=== PATIENT | male | born 2000 | race Two or more races ===

== ENCOUNTER 2024-09-29 13:55 | Inpatient (IN) | payer BC ==
[~2024-09-29] VITALS: Ht 172.7 cm; Wt 99.5 kg
[2024-09-29 15:04] VITALS: BP 122/86; PULSE 87; RESP 16; TEMP 97.8; O2SAT 97
[2024-09-29] MEDS: TETANUS-DIPTH-ACEL PERTUSSIS 0.5ML SYR Tdap IM ONE (15:30)
[2024-09-29] MEDS ORDERED: KETOROLAC TROMETH 30 MG/ML 1ML VIAL IV PRN (16:30)
[2024-09-29] MEDS: INSULIN LISPRO (HUMAN) 100 UNITS/ML ML SC SCH ×2 (17:00→22:09)
--- NOTE | 2024-09-29 17:05 | DVH ---
CLINICAL INDICATION: r/o abscess TECHNIQUE: XY R 1ST FINGER XRAY Comparison: None FINDINGS/IMPRESSION: There is no evidence of acute fracture or dislocation. Soft-tissue swelling between the 1st and 2nd digit.
--- NOTE | 2024-09-29 17:11 | DVHHP2 ---
Admitting Diagnosis: Cellulitis affecting R thumb and R palm History of Present Illness R thumb cellulitis Past Medical History PATY- x 5 years Social History Currently works at Patient Family History: Patient reports no known family medical history. Allergies: Coded Allergies: NO KNOWN ALLERGIES (Unverified , 09/29/24) Home Meds Reported Medications Aspirin (Aspirin 81 Low Dose) 81 Mg Chw, 81 MG PO DAILY, TAB.CHEW TAKE 1 TABLET (81 MG) BY MOUTH ONCE DAILY ONE-HALF HOUR PRIOR TO NIASPAN 09/30/24 Metformin Hydrochloride (METFORMIN HCL ER) 500 Mg Tab, 2 TAB PO BIDWM, TAB 09/30/24 Glimepiride (Glimepiride) 1 Mg Tab, 1 MG PO BID, TAB 09/30/24 Dulaglutide (Trulicity) 0.75 Mg/0.5 Ml Inj, 0.75 MG SC QWEEKLY, INJ 09/30/24 Loratadine (Claritin) 10 Mg Tab, 10 MG PO DAILY@0600, TAB 09/30/24 Current Medications Current Medications Medications (Trade) Dose Ordered Sig/Tano Route PRN Reason Start Time Stop Time Status Last Admin Sodium Chloride 1,000 ml @ 25 mls/hr Q24H IV 10/01/24 12:30 10/01/24 15:21 UNV Ceftriaxone Sodium/Dextrose 50 ml @ 50 mls/hr NOW IV 10/01/24 12:30 10/01/24 15:00 UNV Doxycycline Monohydrate (Vibramycin Tablet) 100 mg Q12HR PO 10/01/24 12:30 10/01/24 15:00 UNV Vital Signs Vital Signs Date Time Temp Pulse Resp B/P (MAP) Pulse Ox O2 Delivery O2 Flow Rate FiO2 10/01/24 09:00 97.7 102 17 129/77 (94) 98 97.7 09/30/24 20:00 Room Air* 0 21 Results Labs Test 10/01/24 11:51 10/01/24 06:15 09/30/24 04:43 09/29/24 21:31 Range/Units POC Glucose 115 H 70-106 mg/dl White Blood Count 6.1 4.4-10.8 10^3/uL Red Blood Count 5.69 4.5-5.90 10^6/uL Hemoglobin 16.7 13.5-17.5 g/dL Hematocrit 49.0 41.0-53.0 % Mean Corpuscular Volume 86.2 80.0-100.0 fL Mean Corpuscular Hemoglobin 29.3 28.0-32.0 pg Mean Corpuscular Hemoglobin Concent 34.0 32.0-36.0 g/dL Red Cell Distribution Width 12.9 11.8-14.3 % Platelet Count 234 140-450 10^3/uL Mean Platelet Volume 6.7 L 6.9-10.8 fL Neutrophils (%) (Auto) 62.1 37.0-80.0 % Lymphocytes (%) (Auto) 26.0 10.0-50.0 % Monocytes (%) (Auto) 8.3 0.0-12.0 % Eosinophils (%) (Auto) 2.9 0.0-7.0 % Basophils (%) (Auto) 0.7 0.0-2.0 % Neutrophils # (Auto) 3.8 1.6-8.6 10 ^3/uL Lymphocytes # (Auto) 1.6 0.4-5.4 10 ^3/uL Monocytes # (Auto) 0.5 0-1.3 10 ^3/uL Eosinophils # (Auto) 0.2 0-0.8 10 ^3/uL Basophils # (Auto) 0 0-0.2 10 ^3/uL Nucleated Red Blood Cells 0.1 % Sodium Level 137 136-145 mmol/L Potassium Level 4.0 3.5-5.1 mmol/L Chloride Level 105 98-107 mmol/L Carbon Dioxide Level 24 20-31 mmol/L Anion Gap 8 5-15 Blood Urea Nitrogen 9 9-23 mg/dL Creatinine 0.65 L 0.700-1.30 mg/dL Glomerular Filtration Rate Calc 137 >90 mL/min BUN/Creatinine Ratio 13.8 10.0-20.0 Serum Glucose 139 H 74-106 mg/dL Hemoglobin A1c 5.9 H <5.7 % A1C Calcium Level 10.2 8.7-10.4 mg/dL Total Bilirubin 0.8 0.2-1.0 mg/dL Aspartate Amino Transferase (AST) 21 13-40 U/L Alanine Aminotransferase (ALT) 54 H 7-40 U/L Alkaline Phosphatase 75 46-116 U/L Total Protein 7.4 5.7-8.2 g/dL Albumin 4.7 3.2-4.8 g/dL Erythrocyte Sedimentation Rate 13 0-20 mm/hr Microbiology Date/Time Source Procedure Growth Status 09/29/24 18:10 Blood Blood Culture - Preliminary NO GROWTH AFTER 24 HOURS OF INCUBATION. Resulted Primary Diagnosis Cellulitis affecting R thumb Admitting Diagnosis: Cellulitis affecting R thumb and R hand Cat bite TASNEEM REILLY MD Sep 29, 2024 17:11
[2024-09-29] MEDS: SOD CHL 0.45% 1,000 ML IV SCH (17:17)
[2024-09-29] MEDS: ACCU-CHEK COMFORT CURVE STRIP VI SCH (17:29)
[2024-09-29] MEDS: cefTRIAXone 2GM/50ML D5W 50 ML IV SCH (17:48)
[2024-09-29] MEDS: metFORMIN HYDROCHLORIDE 850 MG TAB PO SCH (18:59)
[2024-09-29 19:50] LABS: Alanine Aminotransferase 58 U/L (7-40); Albumin 5.1 g/dL (3.2-4.8); Alkaline Phosphatase 81 U/L (46-116); Anion Gap 6 (5-15); Aspartate Aminotransferase 26 U/L (13-40); BUN/Creatinine Ratio 13.9 (10.0-20.0); Blood Urea Nitrogen 10 mg/dL (9-23); Calcium 10.7 mg/dL (8.7-10.4); Carbon Dioxide 29 mmol/L (20-31); Chloride 103 mmol/L (98-107); Glucose 130 mg/dL (74-106); Potassium 4.3 mmol/L (3.5-5.1); Sodium 138 mmol/L (136-145)
[2024-09-29 19:51] LABS: Bilirubin, Total 0.8 mg/dL (0.2-1.0); Total Protein 8.1 g/dL (5.7-8.2)
[2024-09-29 20:00] VITALS: PULSE 95; RESP 20; O2SAT 96
[2024-09-29] MEDS: DOXYCYCLINE 100 MG TAB/CAP PO ONE (20:30)
[2024-09-29 21:00] VITALS: BP 135/72; PULSE 95; RESP 20; TEMP 97.9; O2SAT 98
[2024-09-29 21:41] LABS: Basophils # (auto) 0 10 ^3/uL (0-0.2); Basophils % (auto) 0.5 % (0.0-2.0); Eosinophils # (auto) 0.2 10 ^3/uL (0-0.8); Eosinophils % (auto) 2.9 % (0.0-7.0); Hemoglobin 16.4 g/dL (13.5-17.5); Lymphocytes # (auto) 2.3 10 ^3/uL (0.4-5.4); Lymphocytes % (auto) 26.4 % (10.0-50.0); Mean Corpuscular Hemoglobin 30.3 pg (28.0-32.0); Mean Corpuscular Hgb Conc. 35.7 g/dL (32.0-36.0); Monocytes # (auto) 0.6 10 ^3/uL (0-1.3); Monocytes % (auto) 7.3 % (0.0-12.0); Neutrophils # (auto) 5.5 10 ^3/uL (1.6-8.6); Neutrophils % (auto) 62.9 % (37.0-80.0); Nucleated Red Blood Cells % 0.2 %; Platelet Count (auto) 219 10^3/uL (140-450); Red Blood Cells 5.41 10^6/uL (4.5-5.90); Red Cell Distribution Width 13.2 % (11.8-14.3); White Blood Cell 8.7 10^3/uL (4.4-10.8)
[2024-09-29 22:24] LABS: Erythrocyte Sedimentation Rate 13 mm/hr (0-20)
[2024-09-29] MEDS: DOXYCYCLINE 100 MG TAB/CAP PO SCH (23:27)
[2024-09-30] VITALS (7 sets, daily range): BP systolic 119–127; BP diastolic 67–80; PULSE 92–110; RESP 18–20; TEMP 97.4–98.1; O2SAT 97–99
[2024-09-30 06:01] LABS: Basophils # (auto) 0.1 10 ^3/uL (0-0.2); Basophils % (auto) 0.7 % (0.0-2.0); Eosinophils # (auto) 0.2 10 ^3/uL (0-0.8); Eosinophils % (auto) 2.7 % (0.0-7.0); Hematocrit 48.1 % (41.0-53.0); Hemoglobin 17.2 g/dL (13.5-17.5); Lymphocytes # (auto) 1.6 10 ^3/uL (0.4-5.4); Lymphocytes % (auto) 21.6 % (10.0-50.0); Mean Corpuscular Hemoglobin 30.4 pg (28.0-32.0); Mean Corpuscular Hgb Conc. 35.8 g/dL (32.0-36.0); Monocytes # (auto) 0.6 10 ^3/uL (0-1.3); Monocytes % (auto) 7.8 % (0.0-12.0); Neutrophils % (auto) 67.2 % (37.0-80.0); Nucleated Red Blood Cells % 0.4 %; Platelet Count (auto) 222 10^3/uL (140-450); Red Blood Cells 5.67 10^6/uL (4.5-5.90); White Blood Cell 7.4 10^3/uL (4.4-10.8)
[2024-09-30 06:22] LABS: Alanine Aminotransferase 54 U/L (7-40); Albumin 4.7 g/dL (3.2-4.8); Alkaline Phosphatase 75 U/L (46-116); Anion Gap 8 (5-15); Aspartate Aminotransferase 21 U/L (13-40); BUN/Creatinine Ratio 13.8 (10.0-20.0); Bilirubin, Total 0.8 mg/dL (0.2-1.0); Blood Urea Nitrogen 9 mg/dL (9-23); Calcium 10.2 mg/dL (8.7-10.4); Carbon Dioxide 24 mmol/L (20-31); Chloride 105 mmol/L (98-107); Glucose 139 mg/dL (74-106); Sodium 137 mmol/L (136-145); Total Protein 7.4 g/dL (5.7-8.2)
[2024-09-30] MEDS ORDERED: ASPI81CH74 PO (15:44)
[2024-09-30] MEDS ORDERED: LORA-622 PO (15:44)
[2024-09-30] MEDS ORDERED: METF-489 PO (15:44)
[2024-09-30] MEDS ORDERED: DULA1INJ SC (15:44)
[2024-09-30] MEDS ORDERED: GLIM-38 PO (15:44)
--- NOTE | 2024-09-30 16:12 | DVHINCON2 ---
Date of service: Sep 30, 2024 Family History: Patient reports no known family medical history. Allergies: Coded Allergies: NO KNOWN ALLERGIES (Unverified , 09/29/24) Home Meds Reported Medications Aspirin (Aspirin 81 Low Dose) 81 Mg Chw, 81 MG PO DAILY, TAB.CHEW TAKE 1 TABLET (81 MG) BY MOUTH ONCE DAILY ONE-HALF HOUR PRIOR TO NIASPAN 09/30/24 Metformin Hydrochloride (METFORMIN HCL ER) 500 Mg Tab, 2 TAB PO BIDWM, TAB 09/30/24 Glimepiride (Glimepiride) 1 Mg Tab, 1 MG PO BID, TAB 09/30/24 Dulaglutide (Trulicity) 0.75 Mg/0.5 Ml Inj, 0.75 MG SC QWEEKLY, INJ 09/30/24 Loratadine (Claritin) 10 Mg Tab, 10 MG PO DAILY@0600, TAB 09/30/24 Current Medications Current Medications Medications (Trade) Dose Ordered Sig/Tano Route PRN Reason Start Time Stop Time Status Last Admin Ceftriaxone Sodium/Dextrose 50 ml @ 50 mls/hr Q12H IV 09/29/24 17:00 09/30/24 05:00 Diagnostic Test (Pha) (Accu-Chek Comfort Curve T) 1 strip ACHS 09/29/24 17:00 09/30/24 15:42 Insulin Human Lispro (HumaLOG) AC SC 09/29/24 17:00 Insulin Human Lispro (HumaLOG) HS SC 09/29/24 22:00 09/29/24 22:09 Metformin HCl (Glucophage) 850 mg BIDWM PO 09/29/24 18:00 09/30/24 10:01 Ketorolac Tromethamine (Toradol Injection) 30 mg Q6HPRN PRN IV MODERATE PAIN (4-6 PAIN SCALE) 09/29/24 16:30 10/04/24 16:29 Doxycycline Monohydrate (Vibramycin Tablet) 100 mg Q12HR PO 09/29/24 22:00 09/30/24 10:02 Vital Signs Vital Signs Date Time Temp Pulse Resp B/P (MAP) Pulse Ox O2 Delivery O2 Flow Rate FiO2 09/30/24 12:48 98.1 107 18 119/75 (90) 98 98.1 09/30/24 08:00 Room Air* 0 21 Labs/Diagnostic Data Labs Test 09/30/24 11:26 09/30/24 04:43 09/29/24 21:31 Range/Units POC Glucose 120 H 70-106 mg/dl White Blood Count 7.4 4.4-10.8 10^3/uL Red Blood Count 5.67 4.5-5.90 10^6/uL Hemoglobin 17.2 13.5-17.5 g/dL Hematocrit 48.1 41.0-53.0 % Mean Corpuscular Volume 85.0 80.0-100.0 fL Mean Corpuscular Hemoglobin 30.4 28.0-32.0 pg Mean Corpuscular Hemoglobin Concent 35.8 32.0-36.0 g/dL Red Cell Distribution Width 13.0 11.8-14.3 % Platelet Count 222 140-450 10^3/uL Mean Platelet Volume 7.0 6.9-10.8 fL Neutrophils (%) (Auto) 67.2 37.0-80.0 % Lymphocytes (%) (Auto) 21.6 10.0-50.0 % Monocytes (%) (Auto) 7.8 0.0-12.0 % Eosinophils (%) (Auto) 2.7 0.0-7.0 % Basophils (%) (Auto) 0.7 0.0-2.0 % Neutrophils # (Auto) 5.0 1.6-8.6 10 ^3/uL Lymphocytes # (Auto) 1.6 0.4-5.4 10 ^3/uL Monocytes # (Auto) 0.6 0-1.3 10 ^3/uL Eosinophils # (Auto) 0.2 0-0.8 10 ^3/uL Basophils # (Auto) 0.1 0-0.2 10 ^3/uL Nucleated Red Blood Cells 0.4 % Sodium Level 137 136-145 mmol/L Potassium Level 4.0 3.5-5.1 mmol/L Chloride Level 105 98-107 mmol/L Carbon Dioxide Level 24 20-31 mmol/L Anion Gap 8 5-15 Blood Urea Nitrogen 9 9-23 mg/dL Creatinine 0.65 L 0.700-1.30 mg/dL Glomerular Filtration Rate Calc 137 >90 mL/min BUN/Creatinine Ratio 13.8 10.0-20.0 Serum Glucose 139 H 74-106 mg/dL Hemoglobin A1c 5.9 H <5.7 % A1C Calcium Level 10.2 8.7-10.4 mg/dL Total Bilirubin 0.8 0.2-1.0 mg/dL Aspartate Amino Transferase (AST) 21 13-40 U/L Alanine Aminotransferase (ALT) 54 H 7-40 U/L Alkaline Phosphatase 75 46-116 U/L Total Protein 7.4 5.7-8.2 g/dL Albumin 4.7 3.2-4.8 g/dL Erythrocyte Sedimentation Rate 13 0-20 mm/hr Plan/Recommendation ASSESSMENT AND PLAN: ID Problem List: - Cat bite to right thumb - Cellulitis of right thumb and index finger - Possible felon abscess of right thumb - Early-onset diabetes mellitus - Prediabetes - Possible depression/anxiety Assessment This is a 21 y.o. male with a past medical history of early-onset diabetes mellitus, who presents with cellulitis of the right thumb and index finger following a cat bite. The patient reports being bitten by his vaccinated cat last . Swelling and erythema developed along the thumb, including the palmar surface of his hand. He has been on doxycycline, and the swelling has since decreased. He reports no fevers, chills, or lymphadenopathy. He denies involvement of the elbow or shoulder. He had wrist pain which has resolved. On physical exam, there is a puncture wound on both the palmar and dorsal aspects of the right thumb, with mild erythema extending midway down the thumb joint, and tenderness. No purulence is noted, but the patient states purulence was present previously. No blistering is observed. Laboratory studies show a white blood cell count of 8.7 x10^9/L and an HbA1c of 5.9%. X-ray of the right thumb shows no evidence of fracture, with soft tissue swelling between the 1st and 2nd digits. Plan: - Switch antibiotics to Unasyn (ampicillin-sulbactam), effective for cat bite cellulitis. - Recommend CT imaging to rule out felon abscess. - If no abscess is present, plan to discharge patient on a 30-day course of oral Augmentin 875 mg/125 mg BID. - Monitor for signs of infection or abscess formation. - Encourage glucose monitoring due to prediabetes. - Screen for depression and anxiety. Isolation Precautions: standard Assessment and plan was discussed with the patient as written above Plan is subject to change pending incorporation of new incoming infor mation/diagnostics. Updates may be added as addendum at the bottom (OR TOP) of this note Thank you for the interesting consult. We will continue to follow. Please contact Infectious Disease for any questions or concerns. Abril Hardy M.D. [facility] Ph: ? History: The patient's chart and medications were reviewed in detail, and the patient was seen and examined. History obtained from: patient The patient is a 21 y.o. male with a past medical history of early-onset diabetes mellitus, who presents with cellulitis of the right thumb and index f yobany following a cat bite. He reports being bitten by his vaccinated cat last . Swelling and erythema developed along the thumb, including the palmar surface of his hand. He started doxycycline, and the swelling has since decreased. He denies fevers, chills, or lymphadenopathy. No involvement of the elbow or shoulder is reported. Previous wrist pain has resolved. Review of Systems: A complete 10-system review of systems was completed and negative except as noted in the HPI or here. ROS: - CONSTITUTIONAL: Denies weight loss, fever, and chills. - HEENT: Denies changes in vision and hearing. - RESPIRATORY: Denies SOB and cough. - CV: Denies palpitations and chest pain. - GI: Denies abdominal pain, nausea, vomiting, and diarrhea. - : Denies dysuria and urinary frequency. - MSK: Denies myalgia and joint pain. Reports prior wrist pain, now resolved. - SKIN: Reports swelling and redness of right thumb. - NEUROLOGICAL: Denies headache and syncope. - PSYCHIATRIC: Possible depression and anxiety. Past Medical History: Diagnosis - Early-onset diabetes mellitus - Possible depression and anxiety Past Surgical History: History reviewed. No pertinent surgical history. Home Medications: Not on file. Allergies: No known allergies. Family History: Not on file. Social History: Tobacco Use - Smoking status: Never - Smokeless tobacco: Never Vaping Use - Vaping status: Never used Substance and Sexual Activity - Alcohol use: Never - Drug use: Never - Sexual activity: Not specified Other Topics Concern - Not on file Social Determinants of Health - Not on file Objective: Vital Signs on Arrival: Temp: 36.4 C (97.5 F)?BP: 127/80 mmHg?Pulse: 90?Resp: 18?SpO2: 99% on room air Most Recent Vital Signs: Temp: 36.4 C (97.5 F)?BP: 127/80 mmHg?Pulse: 90?Resp: 18?SpO2: 99% on room air Admission Weight: Not on file?BMI: Not on file Physical Exam: General:?NAD Neck:?Supple. No masses. HEENT:?PERRL. Normal lids and conjunctiva. Moist mucous membranes. Oropharynx without lesions, exudates, or excessive erythema. Normal appearance of the external aspects of the nose and ears. Heart:?Regular rhythm, normal rate. No murmur. No lower extremity edema. Lungs:?Normal respiratory effort. Clear to auscultation bilaterally. No wheezes. No crackles. Abdomen:?Soft. Non-tender. Non-distended. No masses or abdominal hernia. Msk:?No digital cyanosis. Normal strength and tone in all 4 limbs. Puncture wounds on palmar and dorsal aspects of right thumb. Mild erythema extending midway down the right thumb joint. Tenderness to palpation of right thumb. Skin:?Warm and dry. Mild erythema and tenderness of the right thumb extending midway down the thumb joint. Puncture wounds noted on palmar and dorsal aspects of the right thumb. No purulence. No blistering. Neuro:?Alert. No facial droop or slurred speech. Extra-ocular movements intact. Sensation intact to soft touch in all 4 limbs. Psych:?Appropriate mood. Full affect. Oriented to person, place, time, and situation. Lines: No active lines. Diagnostic Studies: Available diagnostic studies were reviewed personally. Significant relevant results and findings are outlined below or addressed in the Assessment and Plan above. Pertinent Imaging: X-ray Right Thumb - Impression: - No fracture or dislocation. Soft tissue swelling between the 1st and 2nd digits. Laboratory Studies: - WBC: 8.7 x10^9/L - HbA1c: 5.9% Plan discussed with: Patient ABRIL HARDY MD Sep 30, 2024 16:12
--- NOTE | 2024-09-30 19:54 | DVHPN2 ---
Progress Note - Dictate Date Seen: Sep 30, 2024 vital signs Vital Sign Date Time Temp Pulse Resp B/P (MAP) Pulse Ox O2 Delivery O2 Flow Rate FiO2 09/30/24 16:52 97.4 101 18 127/80 (96) 99 97.4 09/30/24 08:00 Room Air* 0 21 Total Intake and Output 09/29/24 09/29/24 09/30/24 15:00 23:00 07:00 Intake Total 450 ml 1450 ml Output Total 300 ml Balance 150 ml 1450 ml medications Current Medications Medications Dose Ordered Sig/Tano Route Start Time Stop Time Status Last Admin Dose Admin Sodium Chloride 1,000 ml @ 75 mls/hr [id number] IV 09/29/24 15:30 09/30/24 17:58 75 MLS/HR Ceftriaxone Sodium/Dextrose 50 ml @ 50 mls/hr Q12H IV 09/29/24 17:00 09/30/24 17:57 50 MLS/HR Diagnostic Test (Pha) 1 strip ACHS 09/29/24 17:00 09/30/24 17:49 1 STRIP Insulin Human Lispro AC SC 09/29/24 17:00 Insulin Human Lispro HS SC 09/29/24 22:00 09/29/24 22:09 2 UNITS Metformin HCl 850 mg BIDWM PO 09/29/24 18:00 09/30/24 17:57 850 MG Ketorolac Tromethamine 30 mg Q6HPRN PRN IV 09/29/24 16:30 10/04/24 16:29 Doxycycline Monohydrate 100 mg Q12HR PO 09/29/24 22:00 09/30/24 10:02 100 MG laboratory and microbiology Laboratory Tests 09/30/24 04:43 Test 09/30/24 04:43 Range/Units Serum Glucose 139 H 74-106 mg/dL TASNEEM REILLY MD Sep 30, 2024 19:54
[2024-10-01 01:00] VITALS: BP 117/69; PULSE 95; RESP 20; TEMP 98.6; O2SAT 98
[2024-10-01 05:00] VITALS: BP 131/74; PULSE 98; RESP 20; TEMP 97.6; O2SAT 98
[2024-10-01 07:11] LABS: Basophils # (auto) 0 10 ^3/uL (0-0.2); Basophils % (auto) 0.7 % (0.0-2.0); Eosinophils # (auto) 0.2 10 ^3/uL (0-0.8); Eosinophils % (auto) 2.9 % (0.0-7.0); Hemoglobin 16.7 g/dL (13.5-17.5); Lymphocytes # (auto) 1.6 10 ^3/uL (0.4-5.4); Mean Corpuscular Hemoglobin 29.3 pg (28.0-32.0); Mean Corpuscular Volume 86.2 fL (80.0-100.0); Monocytes # (auto) 0.5 10 ^3/uL (0-1.3); Monocytes % (auto) 8.3 % (0.0-12.0); Neutrophils # (auto) 3.8 10 ^3/uL (1.6-8.6); Neutrophils % (auto) 62.1 % (37.0-80.0); Nucleated Red Blood Cells % 0.1 %; Platelet Count (auto) 234 10^3/uL (140-450); Red Blood Cells 5.69 10^6/uL (4.5-5.90); Red Cell Distribution Width 12.9 % (11.8-14.3); White Blood Cell 6.1 10^3/uL (4.4-10.8)
[2024-10-01 09:00] VITALS: BP 129/77; PULSE 102; RESP 17; TEMP 97.7; O2SAT 98
[2024-10-01] MEDS ORDERED: DOXYCYCLINE 100 MG TAB/CAP PO SCH (12:30)
[2024-10-01] MEDS ORDERED: SOD CHL 0.45% 1,000 ML IV SCH ×2 (12:30→13:00)
[2024-10-01] MEDS ORDERED: cefTRIAXone 2GM/50ML D5W 50 ML IV SCH (12:30)
--- NOTE | 2024-10-01 12:49 | DVHPN2 ---
Consult Progress Note Date Seen: Oct 01, 2024 Subjective Patient reports: Feels better (swelling and redness improved) Objective vital signs Vital Sign Date Time Temp Pulse Resp B/P (MAP) Pulse Ox O2 Delivery O2 Flow Rate FiO2 10/01/24 09:00 97.7 102 17 129/77 (94) 98 97.7 09/30/24 20:00 Room Air* 0 21 Total Intake and Output 09/30/24 09/30/24 10/01/24 15:00 23:00 07:00 Intake Total 1900 ml 1300 ml Output Total 600 ml 0 ml Balance 1300 ml 1300 ml medications Current Medications Medications Dose Ordered Sig/Tano Route Start Time Stop Time Status Last Admin Dose Admin Diagnostic Test (Pha) 1 strip ACHS 09/29/24 17:00 10/01/24 06:35 1 STRIP Insulin Human Lispro AC SC 09/29/24 17:00 Insulin Human Lispro HS SC 09/29/24 22:00 09/30/24 21:14 2 UNITS Metformin HCl 850 mg BIDWM PO 09/29/24 18:00 10/01/24 10:02 850 MG Ketorolac Tromethamine 30 mg Q6HPRN PRN IV 09/29/24 16:30 10/04/24 16:29 Sodium Chloride 1,000 ml @ 25 mls/hr Q24H IV 10/01/24 12:30 10/01/24 15:21 Ceftriaxone Sodium/Dextrose 50 ml @ 50 mls/hr NOW IV 10/01/24 12:30 10/01/24 15:00 UNV Doxycycline Monohydrate 100 mg Q12HR PO 10/01/24 12:30 10/01/24 15:00 UNV Ampicillin Sodium/ Sulbactam Sodium 3 gm/Sodium Chloride 100 ml @ 100 mls/hr Q6H IV 10/01/24 12:45 UNV Physical Exam: General:?NAD Neck:?Supple. No masses. HEENT:?PERRL. Normal lids and conjunctiva. Moist mucous membranes. Oropharynx without lesions, exudates, or excessive erythema. Normal appearance of the external aspects of the nose and ears. Heart:?Regular rhythm, normal rate. No murmur. No lower extremity edema. Lungs:?Normal respiratory effort. Clear to auscultation bilaterally. No wheezes. No crackles. Abdomen:?Soft. Non-tender. Non-distended. No masses or abdominal hernia. Msk:?No digital cyanosis. Normal strength and tone in all 4 limbs. Puncture wounds on palmar and dorsal aspects of right thumb. Mild erythema extending midway down the right thumb joint. Tenderness to palpation of right thumb. Skin:?Warm and dry. Mild erythema and tenderness of the right thumb extending midway down the thumb joint. Puncture wounds noted on palmar and dorsal aspects of the right thumb. No purulence. No blistering. Neuro:?Alert. No facial droop or slurred speech. Extra-ocular movements intact. Sensation intact to soft touch in all 4 limbs. Psych:?Appropriate mood. Full affect. Oriented to person, place, time, and situation. laboratory and microbiology Laboratory Tests 10/01/24 06:15 09/30/24 04:43 Test 09/30/24 04:43 Range/Units Serum Glucose 139 H 74-106 mg/dL Problem List/Assessment/Plan Problem List/Assessment/Plan ASSESSMENT AND PLAN: ID Problem List: - Cat bite to right thumb - Cellulitis of right thumb and index finger - Possible felon abscess of right thumb - Early-onset diabetes mellitus - Prediabetes - Possible depression/anxiety Assessment This is a 21 y.o. male with a past medical history of early-onset diabetes mellitus, who presents with cellulitis of the right thumb and index finger following a cat bite. The patient reports being bitten by his vaccinated cat last . Swelling and erythema developed along the thumb, including the palmar surface of his hand. He has been on doxycycline, and the swelling has since decreased. He reports no fevers, chills, or lymphadenopathy. He denies involvement of the elbow or shoulder. He had wrist pain which has resolved. On physical exam, there is a puncture wound on both the palmar and dorsal aspects of the right thumb, with mild erythema extending midway down the thumb joint, and tenderness. No purulence is noted, but the patient states purulence was present previously. No blistering is observed. Laboratory studies show a white blood cell count of 8.7 x10^9/L and an HbA1c of 5.9%. X-ray of the right thumb shows no evidence of fracture, with soft tissue swelling between the 1st and 2nd digits. Plan: - Switch antibiotics to Unasyn (ampicillin-sulbactam), effective for cat bite cellulitis. - Recommend CT imaging to rule out felon abscess. - If no abscess is present, plan to discharge patient on a 30-day course of oral Augmentin 875 mg/125 mg BID. - Monitor for signs of infection or abscess formation. - Encourage glucose monitoring due to prediabetes. - Screen for depression and anxiety. Isolation Precautions: standard Assessment and plan was discussed with the patient as written above Plan is subject to change pending incorporation of new incoming information/diagnostics. Updates may be added as addendum at the bottom (OR TOP) of this note Thank you for the interesting consult. We will continue to follow. Please contact Infectious Disease for any questions or concerns. Abril Hardy M.D. [facility] Ph: ? Plan discussed with: Patient ABRIL HARDY MD Oct 01, 2024 12:49
--- NOTE | 2024-10-01 12:49 | DVHDS2 ---
Discharge Summary Date of Admission Sep 29, 2024 at 13:55 Date of Discharge: Oct 01, 2024 Labs/Diagnostic Data: Laboratory Results Test 10/01/24 11:51 10/01/24 06:15 09/30/24 04:43 09/29/24 21:31 POC Glucose 115 mg/dl (70-106) White Blood Count 6.1 10^3/uL (4.4-10.8) Red Blood Count 5.69 10^6/uL (4.5-5.90) Hemoglobin 16.7 g/dL (13.5-17.5) Hematocrit 49.0 % (41.0-53.0) Mean Corpuscular Volume 86.2 fL (80.0-100.0) Mean Corpuscular Hemoglobin 29.3 pg (28.0-32.0) Mean Corpuscular Hemoglobin Concent 34.0 g/dL (32.0-36.0) Red Cell Distribution Width 12.9 % (11.8-14.3) Platelet Count 234 10^3/uL (140-450) Mean Platelet Volume 6.7 fL (6.9-10.8) Neutrophils (%) (Auto) 62.1 % (37.0-80.0) Lymphocytes (%) (Auto) 26.0 % (10.0-50.0) Monocytes (%) (Auto) 8.3 % (0.0-12.0) Eosinophils (%) (Auto) 2.9 % (0.0-7.0) Basophils (%) (Auto) 0.7 % (0.0-2.0) Neutrophils # (Auto) 3.8 10 ^3/uL (1.6-8.6) Lymphocytes # (Auto) 1.6 10 ^3/uL (0.4-5.4) Monocytes # (Auto) 0.5 10 ^3/uL (0-1.3) Eosinophils # (Auto) 0.2 10 ^3/uL (0-0.8) Basophils # (Auto) 0 10 ^3/uL (0-0.2) Nucleated Red Blood Cells 0.1 % Sodium Level 137 mmol/L (136-145) Potassium Level 4.0 mmol/L (3.5-5.1) Chloride Level 105 mmol/L (98-107) Carbon Dioxide Level 24 mmol/L (20-31) Anion Gap 8 (5-15) Blood Urea Nitrogen 9 mg/dL (9-23) Creatinine 0.65 mg/dL (0.700-1.30) Glomerular Filtration Rate Calc 137 mL/min (>90) BUN/Creatinine Ratio 13.8 (10.0-20.0) Serum Glucose 139 mg/dL (74-106) Hemoglobin A1c 5.9 % A1C (<5.7) Calcium Level 10.2 mg/dL (8.7-10.4) Total Bilirubin 0.8 mg/dL (0.2-1.0) Aspartate Amino Transferase (AST) 21 U/L (13-40) Alanine Aminotransferase (ALT) 54 U/L (7-40) Alkaline Phosphatase 75 U/L (46-116) Total Protein 7.4 g/dL (5.7-8.2) Albumin 4.7 g/dL (3.2-4.8) Erythrocyte Sedimentation Rate 13 mm/hr (0-20) Other Laboratory Tests 10/01/24 06:15 09/30/24 04:43 Discharge Statement: "Patient was advised to return to the ER or call 911 if any headaches, dizziness, shortness of breath, chest pain, abdominal pain, bleeding, fevers, or worsening of medical condition. Patient was counseled about treatment plan, medications, possible side effects, patientverbalized understanding. All questions were answered to the best of my ability. This discharge took greater then 30 minutes in planning, reviewing documentation, counseling the patient, and discussing with other team members." ASSESSMENT ASSESSMENT Assessment TASNEEM REILLY MD Oct 01, 2024 12:49
[2024-10-01 13:00] VITALS: BP 115/70; PULSE 85; RESP 17; TEMP 97.9; O2SAT 100
--- NOTE | 2024-10-01 13:02 | DVHPN2 ---
Progress Note - Dictate Date Seen: Oct 01, [address] Enzo Hardy Rec CT Thumb Revised IV rocephin to Unasyn vital signs Vital Sign Date Time Temp Pulse Resp B/P (MAP) Pulse Ox O2 Delivery O2 Flow Rate FiO2 10/01/24 09:00 97.7 102 17 129/77 (94) 98 97.7 09/30/24 20:00 Room Air* 0 21 Total Intake and Output 09/30/24 09/30/24 10/01/24 15:00 23:00 07:00 Intake Total 1900 ml 1300 ml Output Total 600 ml 0 ml Balance 1300 ml 1300 ml medications Current Medications Medications Dose Ordered Sig/Tano Route Start Time Stop Time Status Last Admin Dose Admin Diagnostic Test (Pha) 1 strip ACHS 09/29/24 17:00 10/01/24 06:35 1 STRIP Insulin Human Lispro AC SC 09/29/24 17:00 Insulin Human Lispro HS SC 09/29/24 22:00 09/30/24 21:14 2 UNITS Metformin HCl 850 mg BIDWM PO 09/29/24 18:00 10/01/24 10:02 850 MG Ketorolac Tromethamine 30 mg Q6HPRN PRN IV 09/29/24 16:30 10/04/24 16:29 Ceftriaxone Sodium/Dextrose 50 ml @ 50 mls/hr NOW IV 10/01/24 12:30 10/01/24 15:00 UNV Doxycycline Monohydrate 100 mg Q12HR PO 10/01/24 12:30 10/01/24 15:00 UNV Ampicillin Sodium/ Sulbactam Sodium 3 gm/Sodium Chloride 100 ml @ 100 mls/hr Q6H IV 10/01/24 12:45 UNV Sodium Chloride 1,000 ml @ 60 mls/hr [id number] IV 10/01/24 13:00 10/01/24 15:21 UNV laboratory and microbiology Laboratory Tests 10/01/24 06:15 09/30/24 04:43 Test 09/30/24 04:43 Range/Units Serum Glucose 139 H 74-106 mg/dL Problem List Primary Diagnosis Cellulitis affecting R thumb and R hand Cat bite infection of R thumb+ hand Well controlled NIDDM TASNEEM HARDY MD Oct 01, 2024 13:02
--- NOTE | 2024-10-01 13:56 | DVH ---
EXAM: CT CT R HAND WO CONTRAST INDICATION: evaluate for felon abscesS R thumb EXAM DATE: 10/01/2024 01:11 PM COMPARISON: None TECHNIQUE: Multiple axial CT images of the right hand were obtained using bone algorithm. Axial and c oronal reformatting was done. Bone and soft tissue windows were reviewed. Radiation Dose Information: CT Dose: CTDI volume is 7.75 mGy. Dose-length product is 196.17 mGy*cm Findings: Limited evaluation given noncontrast technique. There is no evidence of an acute fracture, dislocation, osseous erosions, blastic, or lytic lesions. No radiopaque foreign bodies. Mild soft tissue edema of the first digit. No definite focal fluid collections. Impression: 1. Limited evaluation given noncontrast technique. 2. No acute osseous abnormalities. 3. Mild soft tissue edema of the first digit. No definite focal fluid collections.
[2024-10-01] MEDS: AMPICILLIN & SULBACTAM SODIUM 3 GM in SODIUM CHL 0.9% 100 ML IV SCH ×2 (15:53→21:49)
[2024-10-01] MEDS: SODIUM CHLORIDE 0.9% 1,000 ML IV SCH (15:53)
[2024-10-01 17:00] VITALS: BP 122/74; PULSE 91; RESP 17; TEMP 98.1; O2SAT 97
[2024-10-01 21:00] VITALS: BP 123/71; PULSE 103; RESP 19; TEMP 98.2; O2SAT 98
[2024-10-02] VITALS (8 sets, daily range): BP systolic 108–132; BP diastolic 55–72; PULSE 84–105; RESP 18–20; TEMP 97.6–98.3; O2SAT 98–99
--- NOTE | 2024-10-02 09:36 | DVHPN2 ---
Progress Note - Dictate Subjective Seen by Dr Enzo Hardy Rec CT Thumb Revised IV rocephin to Unasyn vital signs Vital Sign Date Time Temp Pulse Resp B/P (MAP) Pulse Ox O2 Delivery O2 Flow Rate FiO2 10/02/24 08:26 97.9 105 18 118/72 (87) 98 97.9 10/01/24 08:00 Room Air* 0 21 Total Intake and Output 10/01/24 10/01/24 10/02/24 15:00 23:00 07:00 Intake Total 1475 ml 1134 ml Output Total 0 ml Balance 1475 ml 1134 ml medications Current Medications Medications Dose Ordered Sig/Tano Route Start Time Stop Time Status Last Admin Dose Admin Diagnostic Test (Pha) 1 strip ACHS 09/29/24 17:00 10/02/24 05:42 1 STRIP Insulin Human Lispro AC SC 09/29/24 17:00 Insulin Human Lispro HS SC 09/29/24 22:00 09/30/24 21:14 2 UNITS Metformin HCl 850 mg BIDWM PO 09/29/24 18:00 10/02/24 09:31 850 MG Ketorolac Tromethamine 30 mg Q6HPRN PRN IV 09/29/24 16:30 10/04/24 16:29 Ceftriaxone Sodium/Dextrose 50 ml @ 50 mls/hr NOW IV 10/01/24 12:30 10/01/24 15:00 UNV Doxycycline Monohydrate 100 mg Q12HR PO 10/01/24 12:30 10/01/24 15:00 UNV Sodium Chloride 1,000 ml @ 60 mls/hr [id number] IV 10/01/24 14:15 10/02/24 06:45 60 MLS/HR Ampicillin Sodium/ Sulbactam Sodium 3 gm/Sodium Chloride 100 ml @ 100 mls/hr Q6H IV 10/01/24 22:00 10/02/24 04:03 100 MLS/HR laboratory and microbiology Laboratory Tests 10/01/24 06:15 09/30/24 04:43 Test 09/30/24 04:43 Range/Units Serum Glucose 139 H 74-106 mg/dL PATIENT: LUCY CUEVAS ACCT: [id number] UNIT: [id number] : 2000 LOC: [facility] ROOM / BED: [address] [place] [address] AGE / SEX: 23 / M ADM STATUS: ADM IN SERVICE 1243 ORDERING PHYSICIAN: ABRIL HARDY MD PROCEDURE(s): RHNCT - CT R HAND WO CONTRAST REASON: evaluate for felon abscesS R thumb ORDER NUMBER(s): [id number], ACCESSION NUMBER(s): [id number] EXAM: CT CT R HAND WO CONTRAST INDICATION: evaluate for felon abscesS R thumb EXAM DATE: 10/01/2024 01:11 PM COMPARISON: None Findings: Limited evaluation given noncontrast technique. There is no evidence of an acute fracture, dislocation, osseous erosions, blastic, or lytic lesions. No radiopaque foreign bodies. Mild soft tissue edema of the first digit. No definite focal fluid collections. Impression: 1. Limited evaluation given noncontrast technique. 2. No acute osseous abnormalities. 3. Mild soft tissue edema of the first digit. No definite focal fluid collections. Problem List Primary Diagnosis Cellulitis affecting R thumb and R hand Cat bite infection of R thumb+ hand Well controlled NIDDM TASNEEM HARDY MD Oct 02, 2024 09:36
--- NOTE | 2024-10-02 19:20 | DVHPN2 ---
Consult Progress Note Date Seen: Oct 02, 2024 Subjective Patient reports: Feels better (erythema resolved.) Objective vital signs Vital Sign Date Time Temp Pulse Resp B/P (MAP) Pulse Ox O2 Delivery O2 Flow Rate FiO2 10/02/24 16:33 98.3 84 20 124/65 (84) 98 98.3 10/02/24 08:00 Room Air* 0 21 Total Intake and Output 10/01/24 10/01/24 10/02/24 15:00 23:00 07:00 Intake Total 1475 ml 1134 ml Output Total 0 ml Balance 1475 ml 1134 ml medications Current Medications Medications Dose Ordered Sig/Tano Route Start Time Stop Time Status Last Admin Dose Admin Diagnostic Test (Pha) 1 strip ACHS 09/29/24 17:00 10/02/24 09:36 1 STRIP Insulin Human Lispro AC SC 09/29/24 17:00 Insulin Human Lispro HS SC 09/29/24 22:00 09/30/24 21:14 2 UNITS Metformin HCl 850 mg BIDWM PO 09/29/24 18:00 10/02/24 17:47 850 MG Ketorolac Tromethamine 30 mg Q6HPRN PRN IV 09/29/24 16:30 10/04/24 16:29 Ceftriaxone Sodium/Dextrose 50 ml @ 50 mls/hr NOW IV 10/01/24 12:30 10/01/24 15:00 UNV Doxycycline Monohydrate 100 mg Q12HR PO 10/01/24 12:30 10/01/24 15:00 UNV Sodium Chloride 1,000 ml @ 60 mls/hr [id number] IV 10/01/24 14:15 10/02/24 06:45 60 MLS/HR Ampicillin Sodium/ Sulbactam Sodium 3 gm/Sodium Chloride 100 ml @ 100 mls/hr Q6H IV 10/01/24 22:00 10/02/24 17:46 100 MLS/HR PHYSICAL EXAM: - GENERAL: Alert and oriented x 3. No acute distress. Well-nourished. ? - EYES: EOMI. Anicteric. ?- HENT: Moist mucous membranes. No scleral icterus. No cervical lymphadenopathy. ?- LUNGS: Clear to auscultation bilaterally. No accessory muscle use.? - CARDIOVASCULAR: Regular rate and rhythm. No murmur. No JVD.? - ABDOMEN: Soft, non-tender and non-distended. No palpable masses.? - EXTREMITIES: No edema. Non-tender.?SKIN: No rashes or lesions. Warm. ? - NEUROLOGIC: No focal neurological deficits. CN II-XII grossly intact, but not individually tested.? - PSYCHIATRIC: Cooperative. Appropriate mood and affect. laboratory and microbiology Laboratory Tests 10/01/24 06:15 09/30/24 04:43 Test 09/30/24 04:43 Range/Units Serum Glucose 139 H 74-106 mg/dL Problem List/Assessment/Plan Problem List/Assessment/Plan ASSESSMENT AND PLAN: ID Problem List: - Cat bite to right thumb - Cellulitis of right thumb and index finger - Possible felon abscess of right thumb - Early-onset diabetes mellitus - Prediabetes - Possible depression/anxiety Assessment This is a 21 y.o. male with a past medical history of early-onset diabetes mellitus, who presents with cellulitis of the right thumb and index finger following a cat bite. The patient reports being bitten by his vaccinated cat last . Swelling and erythema developed along the thumb, including the palmar surface of his hand. He has been on doxycycline, and the swelling has since decreased. He reports no fevers, chills, or lymphadenopathy. He denies involvement of the elbow or shoulder. He had wrist pain which has resolved. On physical exam, there is a puncture wound on both the palmar and dorsal aspects of the right thumb, with mild erythema extending midway down the thumb joint, and tenderness. No purulence is noted, but the patient states purulence was present previously. No blistering is observed. Laboratory studies show a white blood cell count of 8.7 x10^9/L and an HbA1c of 5.9%. X-ray of the right thumb shows no evidence of fracture, with soft tissue swelling between the 1st and 2nd digits. CT hand Impression: 1. Limited evaluation given noncontrast technique. 2. No acute osseous abnormalities. 3. Mild soft tissue edema of the first digit. No definite focal fluid collections. Plan: - continue Unasyn (ampicillin-sulbactam), effective for cat bite cellulitis. - no abscess is present, plan to discharge patient on a 30-day course of oral Augmentin 875 mg/125 mg BID. - Monitor for signs of infection or abscess formation. - Encourage glucose monitoring due to prediabetes. - Screen for depression and anxiety. Isolation Precautions: standard Assessment and plan was discussed with the patient as written above Plan is subject to change pending incorporation of new incoming information/diagnostics. Updates may be added as addendum at the bottom (OR TOP) of this note Thank you for the interesting consult. We will continue to follow. Please contact Infectious Disease for any questions or concerns. Abril Hardy M.D. [facility] Ph: ? Plan discussed with: Patient ABRIL HARDY MD Oct 02, 2024 19:20
[2024-10-03 01:00] VITALS: BP 120/59; PULSE 94; RESP 20; TEMP 97.9; O2SAT 99
[2024-10-03 05:01] VITALS: BP 119/62; PULSE 86; RESP 20; TEMP 98.3; O2SAT 98
[2024-10-03 06:18] LABS: Basophils # (auto) 0 10 ^3/uL (0-0.2); Basophils % (auto) 0.8 % (0.0-2.0); Eosinophils # (auto) 0.1 10 ^3/uL (0-0.8); Eosinophils % (auto) 2.4 % (0.0-7.0); Hematocrit 46.7 % (41.0-53.0); Hemoglobin 16.2 g/dL (13.5-17.5); Lymphocytes # (auto) 2.1 10 ^3/uL (0.4-5.4); Lymphocytes % (auto) 33.1 % (10.0-50.0); Mean Corpuscular Hemoglobin 29.7 pg (28.0-32.0); Mean Corpuscular Hgb Conc. 34.6 g/dL (32.0-36.0); Mean Corpuscular Volume 85.8 fL (80.0-100.0); Monocytes # (auto) 0.5 10 ^3/uL (0-1.3); Monocytes % (auto) 7.3 % (0.0-12.0); Neutrophils # (auto) 3.5 10 ^3/uL (1.6-8.6); Neutrophils % (auto) 56.4 % (37.0-80.0); Nucleated Red Blood Cells % 0.2 %; Platelet Count (auto) 233 10^3/uL (140-450); Red Blood Cells 5.45 10^6/uL (4.5-5.90); Red Cell Distribution Width 13.1 % (11.8-14.3); White Blood Cell 6.3 10^3/uL (4.4-10.8)
[2024-10-03 06:44] LABS: Alanine Aminotransferase 54 U/L (7-40); Albumin 4.4 g/dL (3.2-4.8); Alkaline Phosphatase 70 U/L (46-116); Anion Gap 5 (5-15); Aspartate Aminotransferase 21 U/L (13-40); BUN/Creatinine Ratio 19.8 (10.0-20.0); Bilirubin, Total 0.6 mg/dL (0.2-1.0); Blood Urea Nitrogen 16 mg/dL (9-23); Calcium 10.2 mg/dL (8.7-10.4); Carbon Dioxide 29 mmol/L (20-31); Chloride 106 mmol/L (98-107); Glucose 113 mg/dL (74-106); Potassium 4.6 mmol/L (3.5-5.1); Sodium 140 mmol/L (136-145); Total Protein 6.9 g/dL (5.7-8.2)
[2024-10-03 08:00] VITALS: PULSE 79; RESP 20
[2024-10-03 09:00] VITALS: BP 119/67; PULSE 98; RESP 17; TEMP 97.8; O2SAT 98
[2024-10-03] MEDS ORDERED: METF-371 PO (09:47)
[2024-10-03] MEDS ORDERED: AUG875T PO (09:47)
--- NOTE | 2024-10-03 09:57 | DVHPN2 ---
Progress Note - Dictate Date Seen: Oct 03, [address] Enzo Hardy Rec CT Thumb Revised IV rocephin to Unasyn vital signs Vital Sign Date Time Temp Pulse Resp B/P (MAP) Pulse Ox O2 Delivery O2 Flow Rate FiO2 10/03/24 05:01 98.3 86 20 119/62 (81) 98 98.3 10/02/24 20:00 Room Air* 0 21 Total Intake and Output 10/02/24 10/02/24 10/03/24 15:00 23:00 07:00 Intake Total 900 ml 920 ml Balance 900 ml 920 ml medications Current Medications Medications Dose Ordered Sig/Tano Route Start Time Stop Time Status Last Admin Dose Admin Diagnostic Test (Pha) 1 strip ACHS 09/29/24 17:00 10/03/24 05:24 1 STRIP Insulin Human Lispro AC SC 09/29/24 17:00 Insulin Human Lispro HS SC 09/29/24 22:00 10/02/24 21:05 2 UNITS Metformin HCl 850 mg BIDWM PO 09/29/24 18:00 10/03/24 09:15 850 MG Ketorolac Tromethamine 30 mg Q6HPRN PRN IV 09/29/24 16:30 10/04/24 16:29 Ceftriaxone Sodium/Dextrose 50 ml @ 50 mls/hr NOW IV 10/01/24 12:30 10/01/24 15:00 UNV Doxycycline Monohydrate 100 mg Q12HR PO 10/01/24 12:30 10/01/24 15:00 UNV Sodium Chloride 1,000 ml @ 60 mls/hr [id number] IV 10/01/24 14:15 10/02/24 21:09 60 MLS/HR Ampicillin Sodium/ Sulbactam Sodium 3 gm/Sodium Chloride 100 ml @ 100 mls/hr Q6H IV 10/01/24 22:00 10/03/24 09:16 100 MLS/HR laboratory and microbiology Laboratory Tests 10/03/24 05:25 Test 10/03/24 05:25 Range/Units Serum Glucose 113 H 74-106 mg/dL Problem List Primary Diagnosis Cellulitis affecting R thumb and R hand Cat bite infection of R thumb+ hand Well controlled NIDDM TASNEEM HARDY MD Oct 03, 2024 09:57
[2024-10-03 13:00] VITALS: BP 114/64; PULSE 68; RESP 17; TEMP 98.3; O2SAT 99
[2024-10-03 13:11] VITALS: BP 126/75; PULSE 72; RESP 20; TEMP 98.3; O2SAT 98
--- NOTE | 2024-10-03 23:11 | DVHPN2 ---
Consult Progress Note Date Seen: Oct 03, 2024 Subjective Patient reports: Feels better (swelling of thumb has gone away, no fevers or chills , no rash from antibiotics ) Objective vital signs Vital Sign Date Time Temp Pulse Resp B/P (MAP) Pulse Ox O2 Delivery O2 Flow Rate FiO2 10/03/24 13:11 98.3 72 20 98 10/03/24 13:00 114/64 (81) 10/03/24 08:00 Room Air* 0 21 Total Intake and Output 10/02/24 10/02/24 10/03/24 15:00 23:00 07:00 Intake Total 900 ml 920 ml Balance 900 ml 920 ml medications Current Medications Medications Dose Ordered Sig/Tano Route Start Time Stop Time Status Last Admin Dose Admin Ceftriaxone Sodium/Dextrose 50 ml @ 50 mls/hr NOW IV 10/01/24 12:30 10/01/24 15:00 UNV Doxycycline Monohydrate 100 mg Q12HR PO 10/01/24 12:30 10/01/24 15:00 UNV PHYSICAL EXAM: - GENERAL: Alert and oriented x 3. No acute distress. Well-nourished. ? - EYES: EOMI. Anicteric. ?- HENT: Moist mucous membranes. No scleral icterus. No cervical lymphadenopathy. ?- LUNGS: Clear to auscultation bilaterally. No accessory muscle use.? - CARDIOVASCULAR: Regular rate and rhythm. No murmur. No JVD.? - ABDOMEN: Soft, non-tender and non-distended. No palpable masses.? - EXTREMITIES: No edema. Non-tender.?SKIN: No rashes or lesions. Warm. ? - NEUROLOGIC: No focal neurological deficits. CN II-XII grossly intact, but not individually tested.? - PSYCHIATRIC: Cooperative. Appropriate mood and affect. laboratory and microbiology Laboratory Tests 10/03/24 05:25 Test 10/03/24 05:25 Range/Units Serum Glucose 113 H 74-106 mg/dL Problem List/Assessment/Plan Problems(with codes): (1) DM hyperosmolarity type II (2) Cellulitis and abscess of finger, unspecified Problem List/Assessment/Plan ASSESSMENT AND PLAN: ID Problem List: - Cat bite to right thumb - Cellulitis of right thumb and index finger - Possible felon abscess of right thumb - Early-onset diabetes mellitus - Prediabetes - Possible depression/anxiety Assessment This is a 21 y.o. male with a past medical history of early-onset diabetes mellitus, who presents with cellulitis of the right thumb and index finger following a cat bite. The patient reports being bitten by his vaccinated cat last . Swelling and erythema developed along the thumb, including the palmar surface of his hand. He has been on doxycycline, and the swelling has since decreased. He reports no fevers, chills, or lymphadenopathy. He denies involvement of the elbow or shoulder. He had wrist pain which has resolved. On physical exam, there is a puncture wound on both the palmar and dorsal aspects of the right thumb, with mild erythema extending midway down the thumb joint, and tenderness. No purulence is noted, but the patient states purulence was present previously. No blistering is observed. Laboratory studies show a white blood cell count of 8.7 x10^9/L and an HbA1c of 5.9%. X-ray of the right thumb shows no evidence of fracture, with soft tissue swelling between the 1st and 2nd digits. CT hand Impression: 1. Limited evaluation given noncontrast technique. 2. No acute osseous abnormalities. 3. Mild soft tissue edema of the first digit. No definite focal fluid collections. Plan: - continue Unasyn (ampicillin-sulbactam), effective for cat bite cellulitis. - no abscess is present, plan to discharge patient on a 30-day course of oral Augmentin 875 mg/125 mg BID. - Monitor for signs of infection or abscess formation. - Encourage glucose monitoring due to prediabetes. - Screen for depression and anxiety. Isolation Precautions: standard Assessment and plan was discussed with the patient as written above Plan is subject to change pending incorporation of new incoming information/diagnostics. Updates may be added as addendum at the bottom (OR TOP) of this note Thank you for the interesting consult. We will continue to follow. Please contact Infectious Disease for any questions or concerns. Abril Hardy M.D. [facility] Ph: ? Plan discussed with: ABRIL Guerrero MD Oct 03, 2024 23:11
== END 2024-10-03 14:30 | disposition home or self-care (01) | DRG 602 ==
LOC: WEST WING 13:55
PROVIDERS: ADMIT Specialist; ATTEND Specialist
DX: L03.011 Cellulitis of right finger (principal); E11.00 Type 2 diabetes mellitus with hyperosmolarity without nonketotic hyperglycemic-hyperosmolar coma (NKHHC); L02.511 Cutaneous abscess of right hand; F32.A Depression, unspecified; F41.9 Anxiety disorder, unspecified; W55.01XA Bitten by cat, initial encounter; Z79.84 Long term (current) use of oral hypoglycemic drugs
CPT/HCPCS: 36415; 73140; 73200; 80053; 82962; 83036; 85025; 85652; 87040; G0378